=== PATIENT | male | born 1975 | race Caucasian/White ===

== ENCOUNTER 2017-10-22 11:16 | Emergency (ER) | payer MEDICAID ==
[~2017-10-22] VITALS: Ht 162.6 cm; Wt 82.1 kg
[2017-10-22 11:31] VITALS: Ht 162.6 cm; Wt 82.1 kg
[2017-10-22 12:49] LABS: BASOPHIL % 0.3 % (0-2); PLATELET COUNT 235 x10^3mcL (130-400)
[2017-10-22 12:54] LABS: CALCIUM 9.2 mg/dL (8.5-10.1); CARBON DIOXIDE 28.3 mmol/L (21-32); CHLORIDE SERUM 108 mmol/L (98-107); CREATININE SERUM 0.9 mg/dL (0.7-1.3); GFR1 > 60 mL/min; GLUCOSE SERUM 96 mg/dL (74-106); SODIUM SERUM 144 mmol/L (136-145)
[2017-10-22 14:49] VITALS: BP 145/88
== END 2017-10-22 14:49 | disposition home or self-care (01) ==
LOC: ED 11:16
PROVIDERS: Emergency Medicine
DX: I10 Essential (primary) hypertension (principal); R00.2 Palpitations
CPT/HCPCS: 36415; Q0092